=== PATIENT | female | born 1940 | race Caucasian/White ===

== ENCOUNTER 2021-06-22 17:43 | Inpatient (IN) | payer OTHER ==
[~2021-06-22] VITALS: Ht 170.2 cm; Wt 78.6 kg
[2021-06-22 17:44] VITALS: BP 128/63
[2021-06-22 18:18] LABS: ABSOLUTE NEUTROPHILS 6.7 thou/uL (1.4-8.2); BASOPHILS 0.2 % (0.0-2.0); EOSINOPHILS 0.1 % (0.0-3.0); HEMATOCRIT 35.9 % (37.0-47.0); LYMPHOCYTES 15.3 % (24.0-44.0); MCH 28.6 pg (26.0-34.0); MCHC 33.3 g/dL (28.0-37.0); MCV 85.6 fL (80.0-100.0); MONOCYTES 5.8 % (1.0-8.0); PLATELET COUNT 430 thou/uL (150-400); POLYS 78.6 % (36.0-66.0); RDW 16.1 % (10.5-14.5); WBC 8.5 thou/uL (4.0-11.0)
[2021-06-22 18:25] LABS: CALCIUM 10.8 mg/dL (8.5-10.1); CREATININE 1.2 mg/dL (0.6-1.0)
[2021-06-22 18:31] LABS: ALBUMIN 2.7 g/dL (3.4-5.0); TOTAL BILIRUBIN 0.6 mg/dL (0.2-1.0); TOTAL PROTEIN 6.1 g/dL (6.4-8.2)
[2021-06-22 21:23] LABS: URINE BILIRUBIN 1+ (Negative); URINE BLOOD 1+ (Negative); URINE CLARITY CLEAR; URINE COLOR YELLOW; URINE GLUCOSE-RANDOM* NEGATIVE (Negative); URINE KETONES 1+ (Negative); URINE LEUKOCYTES-REFLEX NEGATIVE (Negative); URINE NITRITE-REFLEX NEGATIVE (Negative); URINE PROTEIN (DIPSTICK) NEGATIVE (Negative); URINE UROBILINOGEN 0.2 E.U./dl (0.2-1.0)
[2021-06-22 21:38] LABS: ICTOTEST (BILI CONFIRMATORY) Positive (Negative)
[2021-06-22 22:09] LABS: BACTERIA-REFLEX None Seen /HPF (None Seen); CASTS None Seen /LPF (None Seen); CRYSTALS None Seen /LPF (None Seen); MUCUS None Seen strn/LPF (None Seen); SQUAMOUS None Seen /LPF (0-3); TRANSITIONAL EPITHEL CELL 0-3 Few /LPF (None Seen); URINE RBC 1-2 Rare /HPF (NONE SEEN); URINE WBC-REFLEX None Seen /HPF (0-5)
[2021-06-23] MEDS ORDERED: CHILDREN'S ASPI81 M1 PO (03:28)
[2021-06-23] MEDS ORDERED: LIPITOR40 MG PO (03:29)
[2021-06-23] MEDS ORDERED: BISACODYL10 MG RECTAL (03:32)
[2021-06-23] MEDS ORDERED: LANTUS SUBQ (03:33)
[2021-06-23] MEDS ORDERED: COZAAR 25 MG TA25 M1 PO (03:39)
[2021-06-23] MEDS ORDERED: METAMUCIL0.52 GM PO (03:40)
[2021-06-23] MEDS ORDERED: METOPROLOL SUCC50 MG PO (03:42)
[2021-06-23] MEDS ORDERED: NOVOLOG FL100 UNIT/M (03:48)
[2021-06-23] MEDS ORDERED: OMEPRAZOLE 20 M20 M1 PO (03:49)
[2021-06-23] MEDS ORDERED: SENNA LAX8.6 MG PO (03:49)
[2021-06-23] MEDS ORDERED: THEREMS MULTI400 MCG PO (03:52)
[2021-06-23] MEDS ORDERED: GAS RELIEF125 M1 PO (03:52)
[2021-06-23] MEDS ORDERED: NAPROSYN500 M1 PO (03:56)
[2021-06-23] MEDS ORDERED: LIDOCAINE-HC 3-07 G2 RECTAL (04:07)
[2021-06-23 05:32] LABS: CALCIUM 10.1 mg/dL (8.5-10.1); POTASSIUM 3.1 mmol/L (3.5-5.1)
[2021-06-23 09:31] VITALS: BP 134/66
[2021-06-23 19:46] VITALS: BP 123/68
[2021-06-24 07:14] VITALS: BP 132/74
[2021-06-24 11:33] LABS: HEMATOCRIT 32.1 % (37.0-47.0); HEMOGLOBIN 10.7 gm/dL (12.0-15.0); MCH 28.9 pg (26.0-34.0); MCHC 33.4 g/dL (28.0-37.0); MCV 86.5 fL (80.0-100.0); RBC 3.71 mil/uL (4.20-5.00); RDW 15.6 % (10.5-14.5); WBC 5.4 thou/uL (4.0-11.0)
[2021-06-24 11:51] LABS: INR 1.2
[2021-06-24 11:57] LABS: ALBUMIN 2.3 g/dL (3.4-5.0); CREATININE 0.9 mg/dL (0.6-1.0); TOTAL BILIRUBIN 0.5 mg/dL (0.2-1.0); TOTAL PROTEIN 5.6 g/dL (6.4-8.2)
[2021-06-24 12:14] LABS: POTASSIUM 2.7 mmol/L (3.5-5.1)
[2021-06-24 13:34] VITALS: BP 117/60
[2021-06-24 15:20] VITALS: BP 121/77
[2021-06-24 19:13] VITALS: BP 121/55
[2021-06-25 15:12] LABS: HEMATOCRIT 32.1 % (37.0-47.0); HEMOGLOBIN 10.7 gm/dL (12.0-15.0); MCH 28.6 pg (26.0-34.0); MCHC 33.5 g/dL (28.0-37.0); MCV 85.3 fL (80.0-100.0); RBC 3.76 mil/uL (4.20-5.00); RDW 15.7 % (10.5-14.5); WBC 6.5 thou/uL (4.0-11.0)
[2021-06-25 15:22] LABS: CALCIUM 9.4 mg/dL (8.5-10.1); CREATININE 0.9 mg/dL (0.6-1.0); MAGNESIUM 1.9 mg/dL (1.8-2.4)
[2021-06-25 15:32] VITALS: BP 145/78
[2021-06-25 20:14] VITALS: BP 128/67
== END 2021-06-26 | DRG 329 ==
LOC: ER 17:43 → 4W 23:26 → EROBS 23:26 → 4W 06-23 00:28
PROVIDERS: Internal Medicine; Nurse Practitioner; Nurse Practitioner Family; ADMIT Hospitalist; ATTEND Hospitalist
PROC: 0DBE0ZZ Excision of Large Intestine, Open Approach (ICD-10-PCS; principal; 2021-06-26)
PROC: 0D1B0Z4 Bypass Ileum to Cutaneous, Open Approach (ICD-10-PCS; principal; 2021-06-26)
PROC: 03HY32Z Insertion of Monitoring Device into Upper Artery, Percutaneous Approach (ICD-10-PCS; 2021-06-26)
DX: A04.72 Enterocolitis due to Clostridium difficile, not specified as recurrent (principal); E43 Unspecified severe protein-calorie malnutrition; K56.7 Ileus, unspecified; N39.0 Urinary tract infection, site not specified; K56.41 Fecal impaction; E11.9 Type 2 diabetes mellitus without complications; K59.81 Ogilvie syndrome; R33.9 Retention of urine, unspecified; Z20.822 Contact with and (suspected) exposure to COVID-19; I10 Essential (primary) hypertension; F03.90 Unspecified dementia, unspecified severity, without behavioral disturbance, psychotic disturbance, mood disturbance, and anxiety; Z88.8 Allergy status to other drugs, medicaments and biological substances; Z91.012 Allergy to eggs; Z91.018 Allergy to other foods; B96.20 Unspecified Escherichia coli [E. coli] as the cause of diseases classified elsewhere
CPT/HCPCS: 10040; 62110; 62900; 70005